=== PATIENT | male | born 1970 | race Caucasian/White ===

== ENCOUNTER → 2019-06-17 16:51 | Outpatient (CLI) | payer OTHER, SELFPAY ==
[2019-06-17 16:14] VITALS: BMI 28.8
[2019-06-17 17:35] LABS: Anion Gap 5 (5-15); BUN 12 mg/dL (7-18); BUN/Creat Ratio 9.4 RATIO (10-20); Calcium,Total 9.3 mg/dL (8.5-10.1); Chloride 107 mmol/L (98-107); Creatinine, Serum 1.27 mg/dL (0.70-1.30); EST Glomerular Filtration Rate 64 mL/min (>60); Est Glom Filt Rate - Afr Amer 77 mL/min (>60); Glucose 95 mg/dL (74-106); Potassium 4.1 mmol/L (3.5-5.1); Sodium Level 140 mmol/L (136-145)
[2019-06-17 17:41] LABS: Absolute Lymphocyte Count 2.53 X10^3/uL (0.83-4.51); Absolute Neutrophil Count 2.9 X10^3/uL (2.0-7.7); Basophil# 0.05 X10^3/uL; Basophil% 0.8 % (0-1); Eosinophil# 0.33 X10^3/uL; Eosinophils% 5.1 % (0-5); Hematocrit 45.1 % (40-54); Hemoglobin 14.6 g/dL (13.0-16.5); Lymphocyte # 2.53 X10^3/ul (4.0); Mean Corp Hgb Conc 32.4 g/dL (32-36); Mean Corpuscular Volume 89.7 fL (80-94); Mean Platelet Vol. 9.1 fl (6.2-12.0); Monocyte# 0.69 X10^3/uL; Monocyte% 10.6 % (0-10); NRBC Flagged by Analyzer 0 % (0-5); Neutrophil # 2.88 X10^3/uL (2.7-7.7); Neutrophil % 44.3 % (47-70); Platelet Count 214 K/mm3 (150-450); RBC Distribution Width CV 12.8 % (11.6-14.6); RBC Distribution Width SD 41.5 fl (35.1-43.9); Red Blood Count 5.03 M/mm3 (4.6-6.2); White Blood Count 6.5 K/mm3 (4.4-11.0)
[2019-06-17 19:36] LABS: AST(SGOT) 24 U/L (15-37); Alanine Aminotransfer ALT/SGPT 35 U/L (16-61); Albumin, Serum 4.1 g/dL (3.2-5.0); Alkaline Phosphatase 129 U/L (45-117); Bilirubin, Direct 0.09 mg/dL (0.00-0.30); Cholesterol 228 mg/dL (200); Globulin 4.3 g/dL (2.2-4.2); High Density Lipoprotein 34 mg/dL; Protein, Total 8.4 g/dL (6.4-8.2); Triglycerides 128 mg/dL; Very Low Density Lipoprotein 26 mg/dL (5-40)
== END ==
PROVIDERS: Family Provider Family Medicine; PCP Family Medicine; Referring Provider Internal Medicine Cardiovascular Disease; Visit Provider Internal Medicine Cardiovascular Disease
DX: E78.00 Pure hypercholesterolemia, unspecified (principal); R07.9 Chest pain, unspecified
CPT/HCPCS: 36415; 80048; 80061; 80076; 85025

== ENCOUNTER → 2019-07-06 12:32 | Outpatient (CLI) | payer OTHER, SELFPAY ==
[2019-06-17 16:14] VITALS: BMI 28.8
--- NOTE | 2019-07-06 12:33 | STE_ITS ---
Reason For Study: Chest Pain Stress Results Protocol: Josafat Protocol Maximum Predicted HR: 170 bpm Target HR: 145 bpm % Maximum Predicted HR: 86 % DurationHeart Rate Stage (mm:ss) (bpm) BP Comment Baseline 59 112/78No Chest Pain Josafat Protocol Stage I 3:00 99 118/64No Chest Pain Josafat Protocol Stage II 3:00 103 130/66No Chest Pain Josafat Protocol Stage III 3:00 121 138/62No Chest Pain Josafat Protocol Stage IV 3:00 146 164/60No Chest Pain; Mild Dyspnea Recovery 72 112/64No Chest Pain Stress Duration: 12:00 mm:ss Maximum Stress HR: 146 bpm METS: 13 Baseline Echocardiogram Findings Stress Echo Wall motion Data Resting WM Intermediate WM Stress WM Interpretation Summary Exercise stress echocardiogram. Resting EKG demonstrates normal sinus rhythm with a rate of 59 bpm normal intervals are noted resting blood pressures 112/78 mmHg. The patient exercised according to regular Josafat protocol for a total duration of 12 minutes. The maximum heart rate attained was 160 bpm which was 94% of maximum predicted heart rate the maximum workload was 13.7 metabolic equivalents. At rest there were no ST or T wave changes noted suggest ischemia peak exercise upsloping ST changes only were noted with no meet the criteria for ischemia. No arrhythmias were noted no clinical angina was noted. The resting blood pressure was 112/78 with a peak blood pressure 164/60 mmHg rate pressure product was 23,900. Stress echocardiographic images. Resting and stress echocardiogram images were obtained with the resting ejection fraction noted to be 55% and a peak ejection fraction of 65 to 70%. No wall motion abnormalities were present. Conclusion: Normal exercise stress test with no evidence of ischemia at high workload. Normal resting and stress echocardiographic images. Ordering Physician: Leopoldo Gallego M.D. Referring Physician: Zac Montanez M.D. Performed By: Jing Decker RDCS
== END ==
PROVIDERS: Family Provider Family Medicine; PCP Family Medicine; Referring Provider Internal Medicine Cardiovascular Disease; Visit Provider Internal Medicine Cardiovascular Disease
DX: R07.9 Chest pain, unspecified (principal)
CPT/HCPCS: 93017; 93350